=== PATIENT | male | born 1935 | race Caucasian/White ===

== ENCOUNTER → 2017-10-14 | Outpatient (CLI) | payer MEDICARE | END | disposition home or self-care (01) | LOC: PCVCIMAG 09:23 | DX: E78.5 Hyperlipidemia, unspecified (principal); Z82.49 Family history of ischemic heart disease and other diseases of the circulatory system | CPT/HCPCS: 93325; 93351 ==

== ENCOUNTER → 2018-12-15 | Outpatient (CLI) | payer MEDICARE ==
--- NOTE | 2018-12-15 11:38 | PCVCIMAG ---
APPROVED REPORT Study performed: 12/15/2018 10:21:21 EXAM: Comprehensive 2D, Doppler, and color-flow Echocardiogram Patient Location: Echo lab Status: routine BSA: 1.94 HR: 61 bpmBP: 92/64 mmHg Rhythm: NSR Other Information Study Quality: Adequate Risk Factors: Cardiac Risk Factors: HTN, Hyperlipidemia Indications TIA 2D Dimensions IVSd: 11.69 (7-11mm) LVDd: 35.30 mm PWd: 10.74 (7-11mm)Ascending Ao: 40.99 (22-36mm) LVDs: 26.37 (25-40mm) Left Atrium: 40.56 (27-40mm) Aortic Root: 37.27 mm LV Single Plane 4CH: 60.48 % LV Single Plane 2CH: 67.26 % Biplane EF: 63.7 % Volumes Left Atrial Volume (Systole) Single Plane 4CH: 61.98 mLSingle Plane 2CH: 62.35 mL LA ESV Index: 33.00 mL/m2 Aortic Valve AoV Peak Leroy.: 1.26 m/s AO Peak Gr.: 6.31 mmHgLVOT Max P.91 mmHg LVOT Max V: 0.99 m/s Mitral Valve E/A Ratio: 0.8 MV Decel. Time: 273.72 ms MV E Max Leroy.: 0.60 m/s MV A Leroy.: 0.77 m/s IVRT: 155.71 ms Pulmonary Valve PV Peak Leroy.: 1.15 m/sPV Peak Gr.: 5.32 mmHg Pulmonary Vein P Vein S: 0.31 m/sP Vein A: 0.39 m/s P Vein D: 0.46 m/sP Vein A Dur.: 128.0 msec P Vein S/D Ratio: 0.67 Tricuspid Valve TR Peak Leroy.: 2.31 m/s TR Peak Gr.: 21.36 mmHg Left Ventricle The left ventricle is normal size. There is normal LV segmental wall motion. There is normal left ventricular wall thickness. Left ventricular systolic function is normal. The left ventricular ejection fraction is within the normal range. LVEF is 60-65%. Grade I - abnormal relaxation pattern. Right Ventricle The right ventricle is normal size. The right ventricular systolic function is normal. Atria The left atrium size is normal. The interatrial septum is intact with no evidence for an atrial septal defect. The right atrium size is normal. Aortic Valve The aortic valve is normal in structure. Trace aortic regurgitation. There is no aortic valvular stenosis. Mitral Valve The mitral valve is normal in structure. Mild mitral regurgitation. No evidence of mitral valve stenosis. Tricuspid Valve The tricuspid valve is normal in structure. Mild tricuspid regurgitation with PAP of 28 mmHg. Pulmonic Valve The pulmonary valve is normal in structure. Mild pulmonic regurgitation. Great Vessels The aortic root is normal in size. 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 IVC is normal in size and collapses >50% with inspiration. Pericardium There is no pericardial effusion. There is no pleural effusion. <Conclusion> The left ventricle is normal size. LVEF is 60-65%. Grade I - abnormal relaxation pattern. The right ventricle is normal size. The interatrial septum is intact with no evidence for an atrial septal defect. Trace aortic regurgitation. Mild mitral regurgitation. Mild tricuspid regurgitation with PAP of 28 mmHg. The aortic root is normal in size. There is no pericardial effusion.
== END | disposition home or self-care (01) ==
LOC: PCVCIMAG 10:07
PROVIDERS: ATTEND Internal Medicine
DX: I08.8 Other rheumatic multiple valve diseases (principal); G45.9 Transient cerebral ischemic attack, unspecified; E78.00 Pure hypercholesterolemia, unspecified; I10 Essential (primary) hypertension; R29.810 Facial weakness; R20.0 Anesthesia of skin; R20.2 Paresthesia of skin; Z82.49 Family history of ischemic heart disease and other diseases of the circulatory system; Z88.8 Allergy status to other drugs, medicaments and biological substances; Z91.041 Radiographic dye allergy status; Z72.89 Other problems related to lifestyle; Z79.899 Other long term (current) drug therapy
CPT/HCPCS: 93306; 93880; G0463

== ENCOUNTER → 2019-04-14 | Outpatient (CLI) | payer MEDICARE | END | disposition home or self-care (01) | LOC: PCVCCLINIC 14:25 | PROVIDERS: ATTEND Internal Medicine Cardiovascular Disease | DX: I10 Essential (primary) hypertension (principal); E78.00 Pure hypercholesterolemia, unspecified; Z82.49 Family history of ischemic heart disease and other diseases of the circulatory system; Z85.46 Personal history of malignant neoplasm of prostate; Z85.828 Personal history of other malignant neoplasm of skin; Z90.79 Acquired absence of other genital organ(s); Z80.3 Family history of malignant neoplasm of breast; Z85.038 Personal history of other malignant neoplasm of large intestine; Z72.89 Other problems related to lifestyle; Z88.5 Allergy status to narcotic agent; Z88.1 Allergy status to other antibiotic agents; Z88.8 Allergy status to other drugs, medicaments and biological substances; Z91.041 Radiographic dye allergy status | CPT/HCPCS: 36415; 80061; 93005; G0463 ==